=== PATIENT | male | born 1995 | race Caucasian/White ===

== ENCOUNTER 2017-06-06 16:54 | Emergency (ER) | payer OTHER ==
[~2017-06-06] VITALS: Wt 88.2 kg
[2017-06-06] MEDS ORDERED: IBUPROFEN 800 MG TAB PO ONE (17:30)
[2017-06-06] MEDS ORDERED: NAPR-688 PO (17:32)
[2017-06-06] MEDS ORDERED: METH500T PO (17:32)
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
== END 2017-06-06 18:12 | disposition home or self-care (01) ==
LOC: FTE 16:54
DX: S00.83XA Contusion of other part of head, initial encounter (principal); S29.012A Strain of muscle and tendon of back wall of thorax, initial encounter; V89.2XXA Person injured in unspecified motor-vehicle accident, traffic, initial encounter
CPT/HCPCS: Z7502; Z7610; 99283